=== PATIENT | male | born 1935 | race Caucasian/White ===

== ENCOUNTER 2017-08-10 09:20 | Day surgery (SDC) | payer OTHER | END 2017-08-10 15:20 | disposition home or self-care (01) | LOC: AMB-ENDOS 09:20 | DX: C20 Malignant neoplasm of rectum (principal) ==

== ENCOUNTER 2019-12-05 06:35 | Day surgery (SDC) | payer OTHER | END 2019-12-05 13:15 | disposition home or self-care (01) | LOC: AMB-ENDOS 06:35 | PROVIDERS: ATTEND Colon & Rectal Surgery | DX: K62.89 Other specified diseases of anus and rectum (principal) ==